=== PATIENT | male | born 1985 | race Caucasian/White ===

== ENCOUNTER 2018-09-05 07:22 | Emergency (ER) | payer MEDICAID ==
[~2018-09-05] VITALS: Ht 177.8 cm; Wt 81.8 kg
[2018-09-05] MEDS ORDERED: IBUPROFEN 600 MG TABLET PO ONE (08:15)
[2018-09-05] MEDS ORDERED: SODIUM CHLORIDE 0.9% 1,000 ML IV ONE (08:15)
[2018-09-05] MEDS ORDERED: ACETAMINOPHEN 325 MG TABLET PO ONE (08:15)
[2018-09-05 09:12] LABS: INFLUENZA TYPE A POSITIVE FOR TYPE A (NEGATIVE); INFLUENZA TYPE B NEGATIVE FOR TYPE B (NEGATIVE)
[2018-09-05 09:43] VITALS: BP 111/64
== END 2018-09-05 09:45 | disposition home or self-care (01) ==
LOC: EMS 07:25
DX: J11.1 Influenza due to unidentified influenza virus with other respiratory manifestations (principal)
CPT/HCPCS: 71046; 87430; 87804; 99284; J7030